=== PATIENT | female | born 2000 | race Caucasian/White ===

== ENCOUNTER → 2022-10-15 16:01 | Outpatient (CLI) | payer OTHER, SELFPAY ==
--- NOTE | 2022-10-15 16:03 | DI.RAD.S_ITS ---
PROCEDURE: XR FOOT RT MIN 3V INDICATIONS: Right foot pain TECHNIQUE: 3 views of the foot were acquired. COMPARISON: None. FINDINGS: Bones: No fractures or dislocations. No suspicious bony lesions. Soft tissues: No tibiotalar joint effusion. Achilles tendon appears normal. IMPRESSION: No acute osseous abnormality. If clinical symptoms persist or clinical suspicion for pathology is high, a repeat examination in 7-10 days, or advanced imaging such as CT or MRI is suggested for further evaluation. Dictated by: Flori Felton M.D. on 10/15/2022 at 17:19 Approved by: Flori Felton M.D. on 10/15/2022 at 17:20
== END ==
PROVIDERS: Referring Provider Nurse Practitioner Family; Visit Provider Nurse Practitioner Family
DX: M79.671 Pain in right foot (principal)
CPT/HCPCS: 73630

== ENCOUNTER → 2024-09-28 15:40 | Outpatient (CLI) | payer OTHER, SELFPAY ==
--- NOTE | 2024-09-28 15:46 | DI.US.S_ITS ---
PROCEDURE: US OB <= 14 WEEKS FETUS INDICATIONS: DATING AND VIABILITY OUTSIDE/PRIOR DATING DATA: Last menstrual period (LMP): 07/25/24. LMP-based estimated date of delivery (LOVE): 05/01/25. First dating scan (date and location): This study. Estimated date of delivery (LOVE) from first dating scan: 05/03/25. The calculations are made using the most accurate LOVE of 05/03/25. TECHNIQUE: Real-time scanning was performed of the fetus and maternal pelvic organs, with image documentation. Endovaginal scanning was also performed to better visualize the fetus and maternal ovaries. COMPARISON: None. FINDINGS: Embryo: [place]-rump length 2.3 cm correlated with a gestational age of 9 weeks 0 days, +/-5 days. Heart rate: 180 beats per minute. Maternal organs: Ovaries not well seen on the right, normal where well seen on the left. IMPRESSION: Single living intrauterine gestation with delivery date projected to be centered on 05/03/25, +/-5 days. heart rate is at the upper limits of normal. Dictated by: Tod Gracia M.D. on 09/29/2024 at 9:36 Approved by: Tod Gracia M.D. on 09/29/2024 at 9:42
== END ==
PROVIDERS: PCP Nurse Practitioner Family; Referring Provider Nurse Practitioner Family; Visit Provider Nurse Practitioner Family
DX: Z34.91 Encounter for supervision of normal pregnancy, unspecified, first trimester (principal); Z3A.09 9 weeks gestation of pregnancy
CPT/HCPCS: 76801; 76817

== ENCOUNTER → 2024-10-25 16:27 | Outpatient (CLI) | payer OTHER, SELFPAY ==
--- NOTE | 2024-10-25 16:28 | DI.US.S_ITS ---
PROCEDURE: US OB LIMITED INDICATIONS: BLEEDING AND SLIGHT CRAMPING OUTSIDE/PRIOR DATING DATA: Last menstrual period (LMP): 07/25/2024 LMP-based estimated date of delivery (LOVE): 05/01/2025 First dating scan (date and location): 09/28/2024 Estimated date of delivery (LOVE) from first dating scan: 05/03/2025 TECHNIQUE: Real-time scanning was performed of the fetus, with image documentation and biometric measurements. Endovaginal scanning: Not perform COMPARISON: 09/28/2024. FINDINGS: General: A single living intrauterine gestation is present. Presentation: Breech Placenta: Placental position is posterior, without previa. Amniotic fluid index: Visually within normal limits. heart rate: 145 beats per minute. Maternal cervical canal: Closed and measures 4.3 cm long. Normal lower limit is 2.5 cm. biometrics: Biparietal diameter: 2.2 cm, 13 weeks, 4 days. Head circumference: 8.3 cm, 13 weeks, 4 days. Abdominal circumference: 6.5 cm, 13 weeks, 1 day. Femur length: 0.9 cm, 12 weeks, 6 days. Clinically estimated gestational age: 13 weeks, 1 day Composite gestational age from present scan: 13 weeks, 2 days Estimated weight and percentile: Out of range. Delete IMPRESSION: 1. Single live intrauterine gestation with fetus in breech presentation. heart rate is 145 beats per minute. Visually normal amount of amniotic fluid. 2. Cervix is closed and measures 4.3 cm in length. 3. Normal growth. We strive to produce accurate, complete, and clear reports of imaging services. To assist us in improving patient care, this report was composed using standard report templates and voice recognition software. Therefore, it may contain abnormal punctuation, insertions and/or omissions. Occasional wrong-word or sound-alike substitutions may occur. Though we review the report and make efforts to correct it, we do recommend that the report be read carefully in proper context to recognize any text inaccuracies. Dictated by: Derrick Orellana M.D. on 10/26/2024 at 11:34 Approved by: Derrick Orellana M.D. on 10/26/2024 at 11:39
== END ==
PROVIDERS: PCP Nurse Practitioner Family; Referring Provider Nurse Practitioner Family; Visit Provider Nurse Practitioner Family
DX: Z34.91 Encounter for supervision of normal pregnancy, unspecified, first trimester (principal); Z3A.13 13 weeks gestation of pregnancy
CPT/HCPCS: 76815

== ENCOUNTER 2024-12-03 10:39 | Emergency (ER) | payer OTHER, SELFPAY ==
[2024-12-03 10:46] VITALS: BP 121/69; PULSE 88; RESP 16; TEMP 36.6; O2SAT 97; BMI 23.9
[2024-12-03 11:04] LABS: Appearance Urine UA CLEAR; Bilirubin Urine UA NEGATIVE (NEGATIVE); Color Urine UA YELLOW; Glucose Urine UA NEGATIVE (Negative); Ketones Urine UA NEGATIVE (NEGATIVE); Leukocyte Esterase Urine UA NEGATIVE (NEGATIVE); Nitrite Urine UA NEGATIVE (Negative); Occult Blood Urine UA NEGATIVE (Negative); Protein Urine UA NEGATIVE (Negative); Urobilinogen Urine UA 0.2 E.U./dL (0.2); pH Urine UA 7.5 (4.5-8.0)
[2024-12-03 11:15] LABS: RBC Urine None Seen (0-5/HPF); Urine Volume 10mL (spun); WBC Urine 0-1/HPF (0-5/HPF)
[2024-12-03 11:16] LABS: Amorphous Sediment Urine 2+; Bacteria Urine Moderate (10-30); Culture Indicated Urine Cult Not Indicated; Mucus Urine 1+ (Negative); Squamous Epithelial Cell Urine 5-10 /HPF (0-5/HPF)
--- NOTE | 2024-12-03 12:08 | ED_ITS ---
HPI - Female Genitourinary <Radha Negrete PA-C - Last Filed: 12/03/24 13:35> General Chief complaint: Urogenital-Female Stated complaint: potential UTI, sent by OB, 18 weeks Time Seen by Provider: 12/03/24 11:20 History of Present Illness HPI Narrative: Ms. Porter is a very pleasant 24-year-old female, , approximately 18 weeks , following with Tip Scourer Erin Mera, who presents to the emergency department for concern of UTI x1 day. Patient has had urinary tract infection twice this , most recently 4/6 weeks ago and was treated with Macrobid. This morning patient noticed some right lower quadrant and right back pressure with urination and discomfort. She took a home urinary dip test that was positive for leuks. She called her security and privacy consultant who recommend she comes to the ER for further evaluation. Patient states pain has improved significantly at this time however she does continue to have pressure type pain with urination. No cramping, abnormal vaginal discharge, vaginal bleeding, fevers, chills, constipation, diarrhea, flu type symptoms. No antibiotic allergies. Related Data Previous Rx's Medication Instructions Recorded cefpodoxime 200 mg tablet 200 mg PO Q12H 7 days #14 tabs 12/03/24 Allergies Allergy/AdvReac Type Severity Reaction Status Date / Time No Known Drug Allergies Allergy Unverified 10/15/22 15:40 Review of Systems <Radha Negrete PA-C - Last Filed: 12/03/24 13:35> Review of Systems ROS Unobtainable: All systems reviewed & are unremarkable except as noted in HPI and below Exam <Radha Negrete PA-C - Last Filed: 12/03/24 13:35> Narrative Exam Narrative: GENERAL: 24 year old patient appears stated age. Well-developed patient, in no acute distress. HEAD: Atraumatic. Normocephalic. CARDIOVASCULAR: Regular rate and rhythm. RESPIRATORY: ?Nonlabored respirations. ?Speaking in clear, full sentences. GASTROINTESTINAL: Abdomen soft, non-tender, nondistended. Gravid uterus. Mild subjective pain and left lower quadrant at this time. No rebound or guarding. BACK: No CVA tenderness. NEURO: AOx3. ?Clear speech. ?Moves all 4 extremities appropriately. SKIN: No rash or erythema of visible areas Initial Vital Signs Initial Vital Signs: Vital Signs Temperature 97.8 F 12/03/24 10:46 Pulse Rate 88 12/03/24 10:46 Respiratory Rate 16 12/03/24 10:46 Blood Pressure 121/69 12/03/24 10:46 Pulse Oximetry 97 12/03/24 10:46 Oxygen Delivery Method Room Air 12/03/24 10:46 <Papo Son MD - Last Filed: 12/03/24 20:25> Initial Vital Signs Initial Vital Signs: Vital Signs Temperature 97.8 F 12/03/24 10:46 Pulse Rate 88 12/03/24 10:46 Respiratory Rate 16 12/03/24 10:46 Blood Pressure 121/69 12/03/24 10:46 Pulse Oximetry 97 12/03/24 10:46 Oxygen Delivery Method Room Air 12/03/24 10:46 Course <Radha Negrete PA-C - Last Filed: 12/03/24 13:35> Orders Ordered: ED Orders 12/03/24 12:00 Urine Culture Stat Vital Signs Vital signs: Vital Signs - 8 hr 12/03/24 10:46 Temperature 97.8 F Pulse Rate 88 Respiratory Rate 16 Blood Pressure 121/69 Pulse Oximetry 97 Oxygen Delivery Method Room Air <Papo Son MD - Last Filed: 12/03/24 20:25> Orders Ordered: ED Orders 12/03/24 12:00 Urine Culture Stat Vital Signs Vital signs: Vital Signs - 8 hr 12/03/24 10:46 Temperature 97.8 F Pulse Rate 88 Respiratory Rate 16 Blood Pressure 121/69 Pulse Oximetry 97 Oxygen Delivery Method Room Air MDM - Female Genitourinary <ANTOINE Morse Last Filed: 12/03/24 13:35> Medical Records Attestation: I reviewed the patient's medical records. Lab Data Labs: Lab Results 12/03/24 Range/Units 10:50 Urine Color Yellow Urine Appearance Clear Urine pH 7.5 (4.5-8.0) Ur Specific [place] 1.020 (1.000-1.035) Urine Protein Negative (Negative) Urine Glucose (UA) Negative (Negative) g/dL Urine Ketones Negative (NEGATIVE) Urine Occult Blood Negative (Negative) Urine Nitrate Negative (Negative) Urine Bilirubin Negative (NEGATIVE) Urine Urobilinogen 0.2 (0.2) E.U./dL Ur Leukocyte Esterase Negative (NEGATIVE) Urine RBC None seen (0-5/HPF) Urine WBC 0-1/hpf (0-5/HPF) Ur Squamous Epith Cells 5-10 /hpf H (0-5/HPF) Amorphous Sediment 2+ Urine Bacteria Moderate (10-30) H (None) Urine Mucus 1+ H (Negative) Ur Culture Indicated? Cult not indicated Vol Urine Centrifuged 10ml (spun) MDM Narrative Medical decision making narrative: 24-year-old female, , approximately 18 weeks , following with Tip Scourer Erin Mera, who presents to the emergency department for concern of UTI x1 day. contributes to the history. Differential diagnosis includes but is not limited to urinary tract infection, bacteriuria in , appendicitis, ovarian cyst, nephrolithiasis, etc. On exam patient is in no acute distress, nontoxic-appearing, all vital signs within normal limits. Her abdominal exam is very reassuring, with no tenderness, rebound or guarding however she does have some subjective discomfort in the left lower quadrant at this time, was in the right lower quadrant earlier this morning. Home urinary test positive for leuks, urinalysis here reveals moderate amount of urine bacteria, 5-10 urine squamous epithelial cells. This was a clean-catch urine. Sent for culture, given patient is , we will treat as acute UTI, she did have antibiotics recently and this therefore we will use step-up therapy with cefpodoxime 200 mg b.i.d. x7 days. Discussed strict ED return precautions with the patient that she needs to return with any new or worsening symptoms, follow up with security and privacy consultant and PCP. She verbalized understanding of all information is agreeable with the plan. She is stable for discharge home antibiotics sent to pharmacy of choice. <Papo Son MD - Last Filed: 12/03/24 20:25> Lab Data Labs: Lab Results 12/03/24 Range/Units 10:50 Urine Color Yellow Urine Appearance Clear Urine pH 7.5 (4.5-8.0) Ur Specific [place] 1.020 (1.000-1.035) Urine Protein Negative (Negative) Urine Glucose (UA) Negative (Negative) g/dL Urine Ketones Negative (NEGATIVE) Urine Occult Blood Negative (Negative) Urine Nitrate Negative (Negative) Urine Bilirubin Negative (NEGATIVE) Urine Urobilinogen 0.2 (0.2) E.U./dL Ur Leukocyte Esterase Negative (NEGATIVE) Urine RBC None seen (0-5/HPF) Urine WBC 0-1/hpf (0-5/HPF) Ur Squamous Epith Cells 5-10 /hpf H (0-5/HPF) Amorphous Sediment 2+ Urine Bacteria Moderate (10-30) H (None) Urine Mucus 1+ H (Negative) Ur Culture Indicated? Cult not indicated Vol Urine Centrifuged 10ml (spun) Discharge Plan Departure Patient Disposition: Home Clinical Impression: Bacteriuria during Instructions: DI for Urinary Tract Infection (UTI) Activity Restrictions/Additional Instructions: Dear Ms. Porter, Thank you for coming to the emergency department. Today your urine test did reveal bacteria. Because you have had antibiotics previously for UTI in this , we are treating you with an antibiotic called cefpodoxime twice a day for the next week. Please complete the full course of antibiotics. A urine culture has been sent and you will be called if a change needs to be made to your antibiotic regimen. Please follow up with your security and privacy consultant/primary care doctor for further evaluation. Please return to the emergency department immediately if you develop any new or worsening symptoms, severe pain, abdominal cramping, vaginal bleeding, fevers or other concerns. Please follow up with your primary care doctor within the next 2-3 days for ER follow-up. (If you do not have a PCP you can call [phone]. ?to schedule an appointment with an [facility] Primary Care Provider) IF YOU DEVELOP ANY NEW OR WORSENING SYMPTOMS, RETURN TO THE ER! Please read the attached instructions, they highlight more specific treatments and interventions for you at home. Thank you for letting me participate in your care, Radha Negrete PA-C Prescriptions: New cefpodoxime 200 mg tablet 200 mg PO Q12H 7 Days Qty: 14 0RF Rx Instructions: must administer with a meal/food Referrals: Dai Yi ARNP [Primary Care Provider] - Stand Alone Forms: Patient Portal/API/Survey ED Sign-out <Papo Son MD - Last Filed: 12/03/24 20:25> Cosign ED Attending Leland[place] Attestation: I was immediately available in the department for consultation. This documenta tion has been reviewed and I agree with assessment and plan. Supervised by Papo Son MD
== END 2024-12-03 12:33 | disposition home or self-care (01) ==
PROVIDERS: Emergency Medicine; Emergency Provider Physician Assistant; PCP Nurse Practitioner Family
DX: O99.891 Other specified diseases and conditions complicating pregnancy (principal); Z3A.18 18 weeks gestation of pregnancy
CPT/HCPCS: 81001; 87086; 99281; 99282

== ENCOUNTER 2025-02-16 05:54 | Emergency (ER) | payer OTHER, SELFPAY ==
[2025-02-16 06:06] VITALS: BP 119/79; PULSE 110; RESP 20; TEMP 36.6; O2SAT 96; BMI 26.6
[2025-02-16] MEDS: MAG HYDROX/ALUM/SIMETH 30 ML UDC PO (06:27)
[2025-02-16 06:51] VITALS: PULSE 95; O2SAT 96
[2025-02-16 06:55] LABS: Appearance Urine UA CLEAR; Bilirubin Urine UA NEGATIVE (NEGATIVE); Color Urine UA YELLOW; Glucose Urine UA NEGATIVE (Negative); Ketones Urine UA NEGATIVE (NEGATIVE); Leukocyte Esterase Urine UA NEGATIVE (NEGATIVE); Nitrite Urine UA NEGATIVE (Negative); Occult Blood Urine UA NEGATIVE (Negative); Protein Urine UA NEGATIVE (Negative); Specific Gravity Urine UA <=1.005 (1.000-1.035); Urobilinogen Urine UA 0.2 E.U./dL (0.2)
[2025-02-16 07:00] VITALS: PULSE 96; O2SAT 96
[2025-02-16 07:02] LABS: pH Urine UA 7.0 (4.5-8.0)
[2025-02-16 07:03] LABS: Culture Indicated Urine Cult Not Indicated
[2025-02-16 07:10] LABS: Add Manual Diff / Slide Review NO; Hematocrit 36.4 % (36-46); Hemoglobin 12.9 g/dL (12.0-16.0); Lymphocytes Absolute Auto 1100 /uL (1100-4500); Mean Corpuscular HGB Conc 35.4 % (30-36); Mean Corpuscular Hemoglobin 32.9 PG (26-34); Mean Corpuscular Volume 93.1 fL (80-100); Platelet Count 183 X10^3/uL (150-400)
[2025-02-16 07:14] LABS: Influenza A - CEPHEID Flu A NEGATIVE (NEGATIVE); Influenza B - CEPHEID Flu B NEGATIVE (NEGATIVE)
[2025-02-16 07:18] LABS: COVID-19 CEPHEID 4-PLEX PCR POSITIVE (Negative)
[2025-02-16 07:24] LABS: Alanine Aminotransferase 19 IU/L (<35); Albumin 4.0 g/dL (3.5-5.0); Albumin Globulin Ratio 1.3 (1.0-2.8); Alkaline Phosphatase 74 U/L (38-126); Blood Urea Nitrogen 7 mg/dL (7-17); Calcium 9.0 mg/dL (8.4-10.2); Carbon Dioxide 21 mmol/L (22-32); Chloride 106 mmol/L (98-107); Estimated Glomerular Filt Rate > 60 mL/min (>60); Globulin 3.1 g/dL (1.7-4.1); Glucose 100 mg/dL (70-99); HEMOLYSIS < 15 (0-50); Potassium 3.7 mmol/L (3.4-5.1); Sodium 136 mmol/L (137-145); Total Protein 7.1 g/dL (6.3-8.2)
--- NOTE | 2025-02-16 07:26 | ED.URI ---
HPI - URI/Sore Throat General Chief Complaint: Upper Respiratory Symptoms Stated Complaint: ChestPain, Back Pain, Congestion Time Seen by Provider: 02/16/25 06:14 Mode of arrival: Ambulatory History of Present Illness HPI Narrative: 24-year-old female healthy 29 weeks estimated due date May 01 with no complications thus far on presents with cough nonproductive sinus congestion and midthoracic back pain that is been ongoing for the past few days unrelieved with Tylenol. She denies fever, chills, bodyaches, nausea, vomiting, diarrhea, constipation, sore throat, sick contacts. Other than what is stated 14 point review of system is negative. Related Data Allergies Allergy/AdvReac Type Severity Reaction Status Date / Time No Known Drug Allergies Allergy Unverified 10/15/22 15:40 Review of Systems Review of Systems ROS Unobtainable: All systems reviewed & are unremarkable except as noted in HPI and below Exam Narrative Exam Narrative: GENERAL: [24] year old patient appears stated age. Well-developed patient, in mild distress. HEAD: Atraumatic. Normocephalic. EYES: Pupils equal round and reactive. Extraocular motions intact. No scleral icterus. No injection or drainage. ENT: Nose without bleeding, purulent drainage. Throat without erythema, tonsillar hypertrophy or exudate. Airway patent. NECK: Trachea midline. Non tender CARDIOVASCULAR: Tachycardic Regular rate and rhythm without murmurs, gallops, or rubs. RESPIRATORY: Clear to auscultation. Breath sounds equal bilaterally. No wheezes, rales, or rhonchi. GASTROINTESTINAL: Abdomen soft, non-tender, nondistended. EXTREMITIES: No edema or joint tenderness. BACK: Nontender without deformity or crepitance. No flank tenderness. NEURO: AOx3. SKIN: No rash or erythema of visible areas Initial Vital Signs Initial Vital Signs: Vital Signs Temperature 97.9 F 02/16/25 06:06 Pulse Rate 110 H 02/16/25 06:06 Respiratory Rate 20 02/16/25 06:06 Blood Pressure 119/79 02/16/25 06:06 Pulse Oximetry 96 02/16/25 06:06 Oxygen Delivery Method Room Air 02/16/25 06:06 Course Orders Ordered: Discontinued Medications Al Hydrox/Mg Hydrox/Simethicone (Mag Hydrox/Alum/Simeth 30 Ml Udc) 30 ml PO NOW ONE Stop: 02/16/25 06:21 Last Admin: 02/16/25 06:27 Dose: 30 ml Documented By: SAUL Vital Signs Vital signs: Vital Signs - 8 hr 02/16/25 06:06 Temperature 97.9 F Pulse Rate 110 H Respiratory Rate 20 Blood Pressure 119/79 Pulse Oximetry 96 Oxygen Delivery Method Room Air MDM - URI/Sore Throat Lab Data 02/16/25 06:40 02/16/25 06:40 Labs: Lab Results 02/16/25 02/16/25 02/16/25 Range/Units 06:00 06:35 06:40 WBC 10.4 (4.5-11.0) X10^3/uL RBC 3.91 L (4.0-5.2) X10^6/uL Hgb 12.9 (12.0-16.0) g/dL Hct 36.4 (36-46) % MCV 93.1 (80-100) fL MCH 32.9 (26-34) PG MCHC 35.4 (30-36) % RDW 12.9 (11.6-14.8) % Plt Count 183 (150-400) X10^3/uL Neut % (Auto) 81.1 H (50-75) % Lymph % (Auto) 10.6 L (25-40) % [place] % (Auto) 7.9 (3-14) % Eos % (Auto) 0.2 L (2-4) % Baso % (Auto) 0.2 (0-2) % Neut # (Auto) 8400 H (8199-5862) /uL Lymph # (Auto) 1100 (5499-2443) /uL [place] # (Auto) 800 (0-900) /uL Eos # (Auto) 0 (0-450) /uL Baso # (Auto) 0 (0-100) /uL Sodium 136 L (137-145) mmol/L Potassium 3.7 (3.4-5.1) mmol/L Chloride 106 (98-107) mmol/L Carbon Dioxide 21 L (22-32) mmol/L BUN 7 (7-17) mg/dL Creatinine 0.48 L (0.52-1.04) mg/dL Estimated GFR > 60 (>60) mL/min BUN/Creatinine Ratio 14.6 (6-22) Glucose 100 H (70-99) mg/dL Calcium 9.0 (8.4-10.2) mg/dL Total Bilirubin 0.5 (0.2-1.3) mg/dL AST 27 (14-36) IU/L ALT 19 (<35) IU/L Alkaline Phosphatase 74 (38-126) U/L Total Protein 7.1 (6.3-8.2) g/dL Albumin 4.0 (3.5-5.0) g/dL Globulin 3.1 (1.7-4.1) g/dL Albumin/Globulin Ratio 1.3 (1.0-2.8) Urine Color Yellow Urine Appearance Clear Urine pH 7.0 (4.5-8.0) Ur Specific [place] <=1.005 (1.000-1.035) Urine Protein Negative (Negative) Urine Glucose (UA) Negative (Negative) g/dL Urine Ketones Negative (NEGATIVE) Urine Occult Blood Negative (Negative) Urine Nitrate Negative (Negative) Urine Bilirubin Negative (NEGATIVE) Urine Urobilinogen 0.2 (0.2) E.U./dL Ur Leukocyte Esterase Negative (NEGATIVE) Urine RBC None seen (0-5/HPF) Urine WBC None seen (0-5/HPF) Ur Squamous Epith Cells 1-5 /hpf (0-5/HPF) Amorphous Sediment 2+ Urine Bacteria Occasional (0-1) (None) Ur Culture Indicated? Cult not indicated Vol Urine Centrifuged 10ml (spun) SARS-CoV-2 (PCR) Positive H (Negative) Influenza A (RT-PCR) Flu a negative (NEGATIVE) Influenza B (RT-PCR) Flu b negative (NEGATIVE) RSV (PCR) Negative (Negative) Urine Dip Bedside Urine Glucose Negative Bedside Urine Bilirubin - Negative Bedside Urine Ketone - Negative Urine Specific [place] 1.005 Bedside Urine Occult Blood - Negative Bedside Urine pH 7.5 Bedside Urine Protein - Negative Bedside Urine Urobilinogen - Negative Bedside Urine Nitrite - Negative Bedside Urine Leukocytes - Negative Esterase MDM Narrative Medical decision making narrative: All lab work, vital signs, nurse triage note, medication list, previous ER visits, and all imaging studies reviewed. COVID positive hemodynamically stable. Conservative management at this time Tylenol as needed for fever or pain control and to keep hydrated and to follow up with OBGYN at your next scheduled a point. Differential diagnosis COVID flu RSV pneumonia UTI. Discharge Plan Departure Patient Disposition: Home Clinical Impression: COVID-19 Qualifiers: Weeks of gestation: 29 weeks Qualified Code(s): Z3A.29 - 29 weeks gestation of Instructions: DI for COVID-19 (Suspected or Confirmed ) Activity Restrictions/Additional Instructions: Return with new or worsening symptoms. Keep hydrated. Take Tylenol 500 mg every 6 hours as needed for fever and pain control. Follow up with OBGYN at your next scheduled appointment. Referrals: Dai Yi ARNP [Primary Care Provider, Family Practice] Stand Alone Forms: Patient Portal/API
[2025-02-16 07:45] VITALS: BP 115/76; PULSE 83; RESP 16; O2SAT 97
== END 2025-02-16 07:53 | disposition home or self-care (01) ==
PROVIDERS: Emergency Medicine; Emergency Provider Family Medicine; PCP Nurse Practitioner Family
DX: O98.513 Other viral diseases complicating pregnancy, third trimester (principal); U07.1 COVID-19; Z3A.29 29 weeks gestation of pregnancy
CPT/HCPCS: 36415; 80053; 81001; 81003; 85025; 87637; 99283